=== PATIENT | male | born 1955 | race Two or more races ===

== ENCOUNTER 2016-08-11 15:31 | Emergency (ER) | payer OTHER ==
--- NOTE | 2016-08-11 16:29 | EDPHY ---
H & P Stated Complaint: frequent urination Time Seen by Provider: 08/11/16 16:10 HPI/ROS: CHIEF COMPLAINT: Confusion and urinary frequency HISTORY OF PRESENT ILLNESS: Patient is a 61-year-old man with a history of prostate cancer initially treated by Dr. 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 He is currently part of a clinical trial in [place] with Dr. Olson phone number [phone]. His brought him today concerned because he has had increased urinary frequency. He denies dysuria. He has a neobladder. No bowel abnormalities. No abdominal pain. No fever. His states however that recently he has been mumbling and talking to himself and seem startled when she asked him a question. Also that he occasionally twitches while he is asleep or resting. They spoke with Dr. Jaramillo who was current further an for urinary tract infection and possibly brain metastasis and recommended the patient come here for evaluation. He has not had any weakness or numbness. He has not had any imbalance or difficulty walking. REVIEW OF SYSTEMS: Constitutional: denies: chills, fever, recent illness, recent injury EENTM: denies: blurred vision, double vision, nose congestion Respiratory: denies: cough, shortness of breath Cardiac: denies: chest pain, irregular heart rate, lightheadedness, palpitations Gastrointestinal/Abdominal: denies: abdominal pain, diarrhea, nausea, vomiting, blood streaked stools Genitourinary: See HPI, denies: dysuria, hematuria, pain Musculoskeletal: denies: joint pain, muscle pain Skin: denies: lesions, rash, jaundice, bruising Neurological: See HPI denies: headache, numbness, paresthesia, tingling, dizziness, weakness Hematologic/Lymphatic: denies: blood clots, easy bleeding, easy bruising Immunologic/allergic: denies: HIV/AIDS, transplant EXAM: GENERAL: Well-appearing, well-nourished and in no acute distress. HEAD: Atraumatic, normocephalic. EYES: Pupils equal round and reactive to light, extraocular movements intact, sclera anicteric, conjunctiva are normal. ENT: TMs normal, nares patent, oropharynx clear without exudates. Moist mucous membranes. NECK: Normal range of motion, supple without lymphadenopathy or JVD. LUNGS: Breath sounds clear to auscultation bilaterally and equal. No wheezes rales or rhonchi. HEART: Regular rate and rhythm without murmurs, rubs or gallops. ABDOMEN: Soft, Right inguinal hernia, nontender, normoactive bowel sounds. No guarding, no rebound. No masses appreciated. BACK: No CVA tenderness, no spinal tenderness, step-offs or deformities EXTREMITIES: Normal range of motion, no pitting or edema. No clubbing or cyanosis. NEUROLOGICAL: Cranial nerves II through XII grossly intact. Normal speech, normal gait. 5/5 strength, normal movement in all extremities, normal sensation PSYCH: Normal mood, normal affect. SKIN: Warm, dry, normal turgor, no visible rashes or lesions. Source: Patient Exam Limitations: No limitations - Personal History Current Tetanus Diphtheria and Acellular Pertussis (TDAP): Yes - Medical/Surgical History Hx Asthma: No Hx Chronic Respiratory Disease: No Hx Diabetes: No Hx Cardiac Disease: No Other PMH: abd hernia,bladder ca, bandar bladder, liver metastasis - Family History Significant Family History: Hypertension - Social History Smoking Status: Never smoked Alcohol Use: Sober Drug Use: None Constitutional: Initial Vital Signs Temperature (C) 36.9 C 08/11/16 15:41 Heart Rate 95 08/11/16 15:41 Respiratory Rate 16 08/11/16 15:41 Blood Pressure 139/91 H 08/11/16 15:41 O2 Sat (%) 91 L 08/11/16 15:41 O2 Delivery Mode Room Air Allergies/Adverse Reactions: No Known Allergies Allergy (Unverified 08/11/16 15:39) Home Medications: Medication Instructions Recorded Epacadostat 08/11/16 GAS-X 08/11/16 Metoclopramide 08/11/16 Mucinex 08/11/16 Oxycodone HCl 08/11/16 Oxycontin 08/11/16 Zofran 08/11/16 Medical Decision Making - Diagnostics Imaging: Results: MRI scan of the brain was obtained. The results of the study are multiple metastases approximately 10-12, no mass effect, no herniation, no hemorrhage. The study was read by Dr. Mina Mohan. I viewed the images myself on the PACS system. ED Course/Re-evaluation: discussed the imaging and lab results with Dr. Munoz in [place]. He recommended postvoid bladder scan to see if the patient is having any urinary retention and if so to place a Hilliard catheter. He does not recommend treating with antibiotics at this point awaiting for cultures. The patient is not having symptoms of infection. We discussed the MRI results. He recommended the patient follow up with Dr. Kiran on Saturday to consider whole brain radiation. I discussed this with the patient and his . The patient would prefer to go home. I did offer to admit to the hospital but he declines. The patient's postvoid residual 650. We will place a Hilliard catheter. Patient is comfortable this and continues to wish to be discharged. 9:00 p.m. the patient self caths at home and is declining a Hilliard catheter. He will do this more frequently. I discussed this case again with Dr. Munoz who agrees with this plan and will follow up with him on Saturday and get him into radiation oncology. Differential Diagnosis: Partial list of the Differential diagnosis considered include but were not limited to; bladder retention, urinary tract infection, infection, metastasis and although unlikely based on the history and physical exam, I also considered stroke, anxiety. I discussed these differential diagnoses and the plan with the patient as well as the usual and expected course. The patient understands that the diagnosis is provisional and that in medicine we are not always correct and that further workup is often warranted. Usual and customary warnings were given. All of the patient's questions were answered. The patient was instructed to return to the emergency department should the symptoms at all worsen or return, otherwise to followup with the physician as we discussed. - Data Points Laboratory Results: Laboratory Results 08/11/16 14:36 08/11/16 14:36 08/11/16 08/11/16 17:10 14:36 WBC 8.72 10^3/uL (3.80-9.50) RBC 4.66 10^6/uL (4.40-6.38) Hgb 12.0 L g/dL (13.7-17.5) Hct 35.8 L % (40.0-51.0) MCV 76.8 L fL (81.5-99.8) MCH 25.8 L pg (27.9-34.1) MCHC 33.5 g/dL (32.4-36.7) RDW 13.7 % (11.5-15.2) Plt Count 215 10^3/uL (150-400) MPV 9.3 fL (8.7-11.7) Neut % (Auto) 75.0 H % (39.3-74.2) Lymph % (Auto) 8.7 L % (15.0-45.0) Rankin % (Auto) 15.0 H % (4.5-13.0) Eos % (Auto) 0.1 L % (0.6-7.6) Baso % (Auto) 0.5 % (0.3-1.7) Nucleat RBC Rel Count 0.0 % (0.0-0.2) Absolute Neuts (auto) 6.54 H 10^3/uL (1.70-6.50) Absolute Lymphs (auto) 0.76 L 10^3/uL (1.00-3.00) Absolute Monos (auto) 1.31 H 10^3/uL (0.30-0.80) Absolute Eos (auto) 0.01 L 10^3/uL (0.03-0.40) Absolute Basos (auto) 0.04 10^3/uL (0.02-0.10) Absolute Nucleated RBC 0.00 10^3/uL (0-0.01) Immature Gran % 0.7 % (0.0-1.1) Immature Gran # 0.06 10^3/uL (0.00-0.10) Sodium 131 L mEq/L (134-144) Potassium 4.7 mEq/L (3.5-5.2) Chloride 96 L mEq/L (97-110) Carbon Dioxide 27 mEq/l (22-31) Anion Gap 8 mEq/L (8-16) BUN 20 mg/dL (7-23) Creatinine 1.6 H mg/dL (0.7-1.3) Estimated GFR 44 Glucose 115 H mg/dL (70-100) Calcium 8.3 L mg/dL (8.5-10.4) Total Bilirubin 0.6 mg/dL (0.1-1.4) Conjugated Bilirubin 0.3 mg/dL (0.0-0.5) Unconjugated Bilirubin 0.3 mg/dL (0.0-1.1) AST 59 IU/L (17-59) ALT 63 IU/L (21-72) Alkaline Phosphatase 188 H IU/L (38-126) Total Protein 5.8 L g/dL (6.3-8.2) Albumin 3.1 L g/dL (3.5-5.0) Lipase 25.0 IU/L (23-300) Urine Color YELLOW Urine Appearance HAZY Urine pH 6.0 (5.0-7.5) Ur Specific [place] 1.009 (1.002-1.030) Urine Protein NEGATIVE (NEGATIVE) Urine Ketones NEGATIVE (NEGATIVE) Urine Blood 1+ H (NEGATIVE) Urine Nitrate NEGATIVE (NEGATIVE) Urine Bilirubin NEGATIVE (NEGATIVE) Urine Urobilinogen NEGATIVE EU (0.2-1.0) Ur Leukocyte Esterase 3+ H (NEGATIVE) Urine RBC 1-3 /hpf (0-3) Urine WBC 50-182 H /hpf (0-3) Ur Epithelial Cells NONE SEEN /lpf (NONE-1+) Urine Bacteria TRACE H /hpf (NONE SEEN) Urine Mucus TRACE /lpf (NONE-1+) Ur Culture Indicated? INDICATED H (NI) Urine Glucose NEGATIVE (NEGATIVE) Departure - Departure Disposition: Home, Routine, Self-Care Clinical Impression: Urinary retention, Brain metastases Condition: Fair Instructions: Urinary Retention in Men (ED) Referrals: Mike Kiran MD [Primary Care Provider] - As per Instructions
[2016-08-11] MEDS ORDERED: GADOBUTROL 10 ML VIAL IVP ONE (16:36)
[2016-08-11 16:50] LABS: % IMMATURE GRANULYOCYTES 0.7 % (0.0-1.1); ABSOLUTE IMMATURE GRANULOCYTES 0.06 10^3/uL (0.00-0.10); ADD DIFF? NO; ADD MORPH? NO; ADD SCAN? NO; ATYPICAL LYMPHOCYTE FLAG 10 (0-99); FRAGMENT RBC FLAG 0 (0-99); HEMATOCRIT 35.8 % (40.0-51.0); LEFT SHIFT FLG 0 (0-99); LIPEMIA HEMOLYSIS FLAG 80 (0-99); MEAN CELL HEMOGLOBIN 25.8 pg (27.9-34.1); MEAN CELL HEMOGLOBIN CONCENTR. 33.5 g/dL (32.4-36.7); MEAN CELL VOLUME 76.8 fL (81.5-99.8); MEAN PLATELET VOLUME 9.3 fL (8.7-11.7); PLATELET CLUMPS FLAG 0 (0-99); PLATELET COUNT 215 10^3/uL (150-400); RED BLOOD CELL COUNT 4.66 10^6/uL (4.40-6.38); RED CELL DISTRIBUTION WIDTH 13.7 % (11.5-15.2)
[2016-08-11 17:06] LABS: ALANINE AMINOTRANSFERASE 63 IU/L (21-72); ALBUMIN 3.1 g/dL (3.5-5.0); ALKALINE PHOSPHATASE 188 IU/L (38-126); ANION GAP 8 mEq/L (8-16); ASPARTATE AMINOTRANSFERASE 59 IU/L (17-59); BILIRUBIN,TOTAL 0.6 mg/dL (0.1-1.4); BILIRUBIN-CONJUGATED 0.3 mg/dL (0.0-0.5); BILIRUBIN-UNCONJUGATED 0.3 mg/dL (0.0-1.1); CALCIUM 8.3 mg/dL (8.5-10.4); CARBON DIOXIDE 27 mEq/l (22-31); CHLORIDE 96 mEq/L (97-110); CREATININE 1.6 mg/dL (0.7-1.3); GLOMERULAR FILTRATION RATE 44; GLUCOSE 115 mg/dL (70-100); POTASSIUM 4.7 mEq/L (3.5-5.2); SODIUM 131 mEq/L (134-144); TOTAL PROTEIN 5.8 g/dL (6.3-8.2)
[2016-08-11 17:19] LABS: COLOR YELLOW; LEUKOCYTE ESTERASE,URINE 3+ (NEGATIVE); NITRITE,URINE NEGATIVE (NEGATIVE)
[2016-08-11 17:22] LABS: BACTERIA TRACE /hpf (NONE SEEN); MUCUS TRACE /lpf (NONE-1+); WBC,URINE 50-182 /hpf (0-3)
[2016-08-11 18:11] VITALS: TEMP 98.6
--- NOTE | 2016-08-11 18:27 | MR ---
MRI of the Head (Before and Following Gadolinium) Clinical Indications: Bladder cancer. Evaluate for intracranial metastases. Technique: T1-weighted images were obtained sagittally and axially. Diffusion-weighted, inversion r ecovery, and fast T2-weighted axial images were obtained. T1-weighted axial and coronal images were obtained after intravenous administration of 7 mL of Gadavist. Findings: On postcontrast-enhanced imaging, extensive intracranial metastatic disease is identified. There are approximately nine metastases present in the cerebellum with multiple smaller metastases p resent in the frontal, parietal, and occipital regions above the tentorium. Metastatic lesions are me asured on axial series 9. Again, there are approximately nine metastases in the cerebellum, the large st measuring 2.5 cm superiorly on the right. No evidence of hemorrhage or mass effect. The fourth francis tricle is normal in position and shape. Above the tentorium, there are multiple intracranial metastas es. There is a 5 mm metastasis at the base of the left frontal lobe. There is a 5 mm parafalcine meta stasis in the right frontal lobe. There is also a 4 mm metastasis in the high left frontal lobe. Post eriorly, there is a 9 mm metastasis in the left occipital lobe. There are also small metastases in th e high left frontal cortical region of 6 mm and 7.5 mm on the right. A high right parietal posterior metastasis measures 7.3 mm and a left parafalcine high left parietal metastasis measures 4 mm. Again, no evidence of intracranial hemorrhage, midline shift, or herniation. Craniocervical junction appears normal. Carotid and vertebral basilar flow voids are present. Impression: Multiple cerebellar and cerebral metastatic lesions, approximately 20 in number. Results called to Dr. David at 6:20 p.m.
[2016-08-11 19:56] VITALS: BP 153/94; PULSE 81; RESP 16; O2SAT 91
== END 2016-08-11 19:56 | disposition home or self-care (01) ==
DX: C71.9 Malignant neoplasm of brain, unspecified (principal); R33.9 Retention of urine, unspecified; Z85.51 Personal history of malignant neoplasm of bladder; Z85.05 Personal history of malignant neoplasm of liver
CPT/HCPCS: A9585

== ENCOUNTER → 2016-09-05 | Outpatient (CLI) | payer BC ==
[~2016-09-05] MED LIST: IOPAMIDOL (ISOVUE-300) 100 ML BTL IV ONE
[2016-09-05 15:32] LABS: CREATININE 1.5 mg/dL (0.7-1.3)
== END ==
LOC: FIMAGING 14:27
PROVIDERS: ATTEND Radiology Diagnostic Radiology
DX: C78.7 Secondary malignant neoplasm of liver and intrahepatic bile duct (principal); C67.9 Malignant neoplasm of bladder, unspecified; R91.1 Solitary pulmonary nodule; M89.9 Disorder of bone, unspecified; I25.10 Atherosclerotic heart disease of native coronary artery without angina pectoris; I88.9 Nonspecific lymphadenitis, unspecified; Z90.6 Acquired absence of other parts of urinary tract
CPT/HCPCS: Q9967

== ENCOUNTER 2016-09-07 14:07 | Emergency (ER) | payer BC ==
[2016-09-07] MEDS ORDERED: NS 1,000 ML IV ONE (14:50)
--- NOTE | 2016-09-07 14:50 | EDPHY ---
H & P Smoking Status: Never smoked Time Seen by Provider: 09/07/16 14:22 HPI/ROS: Chief complaint. Swollen feet, dark urine HPI. Patient is a 61-year-old male with metastatic bladder cancer. Over the past 4-5 days he has had progressively generalized weakness, progressive Darrick darker urine. He had a UTI 3 weeks ago and then follow up with Urology showed the urine to be infection free. He has had increased swollen feet over the past 2-3 days it hurts to move. He does have some bilateral calf pain. Slight shortness of breath. No abdominal pain. No fever. No vomiting or diarrhea. He has been having some problems with constipation. Patient has had chemotherapy, clinical trial, radiation, surgery for his bladder cancer. Recent evaluation shows that he has mets to liver and brain. ROS Constitutional. Generalized weakness Eyes. no problems with vision ENT. no sore throat, no nasal drainage Cardiovascular. no chest pain Respiratory. no shortness of breath, no cough Abdominal. no abdominal pain, no nausea/vomiting, no diarrhea . Dark urine MS. Swollen feet and ankles the pain in calf Skin. no rash Lymph. no swollen glands Neuro. no headache, no dizziness, no difficulty walking or with speech (Bhupendra Mart) Past Medical/Surgical History: Metastatic bladder cancer (Bhupendra Mart) Social History: , nonsmoker, no alcohol (Bhupendra Mart) Physical Exam: General Appearance: Alert well-developed male moderate distress vital signs are stable Eyes: Pupils equal and round no pallor or injection. ENT, Mouth: Mucous membranes are moist. Respiratory: There are no retractions, lungs are clear to auscultation. Cardiovascular: Regular rate and rhythm. Gastrointestinal: Abdomen is soft and nontender, no masses, bowel sounds normal. Neurological: Awake and alert, sensory and motor exams grossly normal. Skin: Warm and dry, no rashes. Musculoskeletal: Neck is supple nontender. Extremities 3+ edema to both feet and ankles with tenderness in his calves Psychiatric: Patient is oriented X 3, there is no agitation. (Bhupendra Mart) Constitutional: Initial Vital Signs Temperature (C) 36.8 C 09/07/16 14:12 Heart Rate 88 09/07/16 14:12 Respiratory Rate 18 09/07/16 14:12 Blood Pressure 138/86 H 09/07/16 14:12 O2 Sat (%) 92 09/07/16 14:12 O2 Delivery Mode Room Air Allergies/Adverse Reactions: No Known Allergies Allergy (Unverified 08/11/16 15:39) Home Medications: Medication Instructions Recorded Oxycodone HCl 08/11/16 Oxycontin 08/11/16 Zofran 08/11/16 Cephalexin [Keflex] 500 mg PO TID #21 cap 09/07/16 Medical Decision Making - Diagnostics Imaging: X-ray: chest x-ray was obtained. I viewed the images myself on the PACS system. My interpretation of the images is: negative for acute disease . The radiologist interpretation is negative for acute disease. Study: Ultrasound of the: Bilateral lower extremity Indication: Lower extremity swelling Results: US scan of the lower extremities was obtained. The results of the study are negative for DVTs. The study was read by the radiologist, Dr. Thakur. I viewed the images myself on the PACS system. (Naman David) Procedures: IV normal saline (Bhupendra Mart) Other Provider: The patient's care transferred to [facility] at 3:15 p.m. pending lab work and imaging. The patient's urinalysis appears positive. His cultures from 3 weeks ago show enterococcus sensitive ampicillin, Macrobid, penicillin vancomycin, resistant to tetracyclines and gentamicin 5:10 p.m. I had a long discussion with the patient and his family. Patient has another urinary tract infection. I recommended admission considering his elevated white blood cell count and comorbidities. The patient's family agreed but the patient adamantly refuses. To me he denies any shortness of breath. He states that he only has shortness of breath at home because [place] but that he has oxygen. He wants to receive a dose of IV antibiotics here and go home on pills. He states that he only lives 20 minutes from here has several caretakers. He states that he is on a holiday from his medications and oncologic care. He adamantly refuses again to stay in the hospital. He is saturating 97% on room air and appears comfortable. His heart rate is 85. His BMP is elevated but he has no edema on x-ray and no crackles on exam. His ankles are both edematous but he states that this is likely from being in bed so much over the last 3 days because of his urinary tract infection and feeling under the weather. He will try to increase his mobility. (Naman David) Care Turn Over: Dr. David at 1500 (Bhupendra Mart) - Data Points Laboratory Results: Laboratory Results 09/07/16 15:40 09/07/16 15:40 09/07/16 09/07/16 09/07/16 15:40 15:40 15:40 WBC RBC Hgb Hct MCV MCH MCHC RDW Plt Count MPV Neut % (Auto) Lymph % (Auto) [place] % (Auto) Eos % (Auto) Baso % (Auto) Nucleat RBC Rel Count Absolute Neuts (auto) Absolute Lymphs (auto) Absolute Monos (auto) Absolute Eos (auto) Absolute Basos (auto) Absolute Nucleated RBC Immature Gran % Seg Neutrophils % Band Neutrophils % Lymphocytes % Monocytes % Metamyelocytes % Myelocytes % Immature Gran # Absolute Seg Neuts Absolute Band Neuts Absolute Lymphocytes Absolute Monocytes Absolute Metamyelocyte Absolute Myelocytes Differential Comment Cancelled RBC/WBC/PLT Morphology Cancelled Hypersegmented Neuts Cancelled Atypical Lymphocytes Cancelled Smudge Cells Cancelled Toxic Granulation Cancelled Toxic Vacuolation Cancelled Dohle Bodies Cancelled Melanie Rods Cancelled Platelet Estimate Cancelled Large Platelets Cancelled Giant Platelets Cancelled Bizarre Platelets Cancelled Polychromasia Cancelled Hypochromasia Cancelled Basophilic Stippling Cancelled Microcytic Cells Cancelled Spherocytes Cancelled Pappenheimer Bodies Cancelled Sickle Cells Cancelled Target Cells Cancelled Tear Drop Cells Cancelled Oval Macrocytes Cancelled Stomatocytes Cancelled Miller-[place] Bodies Cancelled Echinocytes Cancelled Elliptocytes Cancelled Acanthocytes (Spur) Cancelled Rouleaux Cancelled Keratocytes Cancelled Schistocytes Cancelled Smear Review By PT 16.1 SEC H SEC (12.0-15.0) INR 1.29 H (0.83-1.16) APTT 25.9 SEC SEC (23.0-38.0) D-Dimer > 20.00 ug/mLFEU H ug/mLFEU (0.00-0.50) Sodium 129 mEq/L L mEq/L (134-144) Potassium 4.8 mEq/L mEq/L (3.5-5.2) Chloride 96 mEq/L L mEq/L (97-110) Carbon Dioxide 24 mEq/l mEq/l (22-31) Anion Gap 9 mEq/L mEq/L (8-16) BUN 38 mg/dL H mg/dL (7-23) Creatinine 1.3 mg/dL mg/dL (0.7-1.3) Estimated GFR 56 Glucose 150 mg/dL H mg/dL (70-100) Calcium 8.5 mg/dL mg/dL (8.5-10.4) Total Bilirubin 2.2 mg/dL H mg/dL (0.1-1.4) Conjugated Bilirubin 1.2 mg/dL H mg/dL (0.0-0.5) Unconjugated Bilirubin 1.0 mg/dL mg/dL (0.0-1.1) AST 145 IU/L H IU/L (17-59) ALT 162 IU/L H IU/L (21-72) Alkaline Phosphatase 453 IU/L H IU/L (38-126) Troponin I 0.016 ng/mL ng/mL (0-0.034) NT-Pro-B Natriuret Pep 1300 pg/mL H pg/mL (0-125) Total Protein 5.9 g/dL L g/dL (6.3-8.2) Albumin 2.9 g/dL L g/dL (3.5-5.0) Lipase 88.0 IU/L IU/L (23-300) Urine Color Urine Appearance Urine pH Ur Specific [place] Urine Protein Urine Ketones Urine Blood Urine Nitrate Urine Bilirubin Urine Urobilinogen Ur Leukocyte Esterase Urine RBC Urine WBC Ur Epithelial Cells Ur Culture Indicated? Urine Glucose Cold Agglutinins Cancelled 09/07/16 09/07/16 15:40 14:55 WBC 16.41 10^3/uL H 10^3/uL (3.80-9.50) RBC 5.35 10^6/uL 10^6/uL (4.40-6.38) Hgb 13.2 g/dL L g/dL (13.7-17.5) Hct 40.6 % % (40.0-51.0) MCV 75.9 fL L fL (81.5-99.8) MCH 24.7 pg L pg (27.9-34.1) MCHC 32.5 g/dL g/dL (32.4-36.7) RDW 22.1 % H % (11.5-15.2) Plt Count 50 10^3/uL L 10^3/uL (150-400) MPV Not Reported Neut % (Auto) Not Reported Lymph % (Auto) Not Reported [place] % (Auto) Not Reported Eos % (Auto) Not Reported Baso % (Auto) Not Reported Nucleat RBC Rel Count 0.0 % % (0.0-0.2) Absolute Neuts (auto) Not Reported Absolute Lymphs (auto) Not Reported Absolute Monos (auto) Not Reported Absolute Eos (auto) Not Reported Absolute Basos (auto) Not Reported Absolute Nucleated RBC 0.00 10^3/uL 10^3/uL (0-0.01) Immature Gran % Not Reported Seg Neutrophils % 90 % % Band Neutrophils % 1 % % Lymphocytes % 2 % % Monocytes % 4 % % Metamyelocytes % 2 % % Myelocytes % 1 % % Immature Gran # Not Reported Absolute Seg Neuts 14.77 10^/uL H 10^/uL (1.70-6.50) Absolute Band Neuts 0.16 10^3/uL 10^3/uL (0.00-0.70) Absolute Lymphocytes 0.33 10^3/uL L 10^3/uL (1.00-3.00) Absolute Monocytes 0.66 10^3/uL 10^3/uL (0.30-0.80) Absolute Metamyelocyte 0.33 10^3/mL H 10^3/mL (0.00-0.00) Absolute Myelocytes 0.16 10^3/mL H 10^3/mL (0.00-0.00) Differential Comment RBC/WBC/PLT Morphology Hypersegmented Neuts Atypical Lymphocytes Smudge Cells Toxic Granulation Toxic Vacuolation Dohle Bodies Melanie Rods Platelet Estimate DECREASED L (ADEQ) Large Platelets Giant Platelets Bizarre Platelets Polychromasia Hypochromasia 1+ H Basophilic Stippling Microcytic Cells 2+ H Spherocytes Pappenheimer Bodies Sickle Cells Target Cells Tear Drop Cells Oval Macrocytes 1+ H Stomatocytes [place] Bodies Echinocytes Elliptocytes Acanthocytes (Spur) Rouleaux Keratocytes Schistocytes Smear Review By Pending PT INR APTT D-Dimer Sodium Potassium Chloride Carbon Dioxide Anion Gap BUN Creatinine Estimated GFR Glucose Calcium Total Bilirubin Conjugated Bilirubin Unconjugated Bilirubin AST ALT Alkaline Phosphatase Troponin I NT-Pro-B Natriuret Pep Total Protein Albumin Lipase Urine Color YELLOW Urine Appearance MODERATELY TURBID Urine pH 6.0 (5.0-7.5) Ur Specific [place] 1.012 (1.002-1.030) Urine Protein 1+ H (NEGATIVE) Urine Ketones NEGATIVE (NEGATIVE) Urine Blood 1+ H (NEGATIVE) Urine Nitrate POSITIVE H (NEGATIVE) Urine Bilirubin NEGATIVE (NEGATIVE) Urine Urobilinogen NEGATIVE EU EU (0.2-1.0) Ur Leukocyte Esterase 1+ H (NEGATIVE) Urine RBC 5-10 /hpf H /hpf (0-3) Urine WBC 50-182 /hpf H /hpf (0-3) Ur Epithelial Cells NONE SEEN /lpf /lpf (NONE-1+) Ur Culture Indicated? INDICATED H (NI) Urine Glucose NEGATIVE (NEGATIVE) Cold Agglutinins Medications Given: Discontinued Medications Sodium Chloride (Ns) 1,000 mls @ 0 mls/hr IV ONCE ONE PRN Reason: Wide Open Stop: 09/07/16 14:51 Last Admin: 09/07/16 15:42 Dose: 1,000 mls Ceftriaxone Sodium/Dextrose (Rocephin 1 Gm (Premix)) 50 mls @ 100 mls/hr IV EDNOW ONE PRN Reason: Protocol Stop: 09/07/16 17:41 Last Admin: 09/07/16 17:25 Dose: 50 mls Departure - Departure Disposition: Home, Routine, Self-Care Clinical Impression: Urinary tract infection Qualifiers: Urinary tract infection type: acute cystitis Hematuria presence: without hematuria Qualified Code(s): N30.00 - Acute cystitis without hematuria Condition: Fair Instructions: Urinary Tract Infection in Men (ED) Referrals: NONE *PRIMARY CARE P,. [Primary Care Provider] - As per Instructions Prescriptions: Cephalexin [Keflex] 500 mg PO TID #21 cap
[2016-09-07 15:06] LABS: COLOR YELLOW; LEUKOCYTE ESTERASE,URINE 1+ (NEGATIVE); NITRITE,URINE POSITIVE (NEGATIVE)
[2016-09-07 15:22] LABS: WBC,URINE 50-182 /hpf (0-3)
[2016-09-07 15:47] LABS: ADD DIFF? YES; ADD MORPH? YES; ADD SCAN? NO; ATYPICAL LYMPHOCYTE FLAG 0 (0-99); FRAGMENT RBC FLAG 40 (0-99); HEMATOCRIT 40.6 % (40.0-51.0); HEMOGLOBIN 13.2 g/dL (13.7-17.5); LEFT SHIFT FLG 10 (0-99); LIPEMIA HEMOLYSIS FLAG 80 (0-99); MEAN CELL HEMOGLOBIN 24.7 pg (27.9-34.1); MEAN CELL HEMOGLOBIN CONCENTR. 32.5 g/dL (32.4-36.7); MEAN CELL VOLUME 75.9 fL (81.5-99.8); PLATELET CLUMPS FLAG 0 (0-99); PLATELET COUNT 50 10^3/uL (150-400); RED BLOOD CELL COUNT 5.35 10^6/uL (4.40-6.38)
[2016-09-07 15:49] LABS: RED CELL DISTRIBUTION WIDTH 22.1 % (11.5-15.2)
[2016-09-07 15:57] LABS: ALANINE AMINOTRANSFERASE 162 IU/L (21-72); ALBUMIN 2.9 g/dL (3.5-5.0); ALKALINE PHOSPHATASE 453 IU/L (38-126); ANION GAP 9 mEq/L (8-16); ASPARTATE AMINOTRANSFERASE 145 IU/L (17-59); BILIRUBIN,TOTAL 2.2 mg/dL (0.1-1.4); BILIRUBIN-CONJUGATED 1.2 mg/dL (0.0-0.5); CALCIUM 8.5 mg/dL (8.5-10.4); CARBON DIOXIDE 24 mEq/l (22-31); CHLORIDE 96 mEq/L (97-110); CREATININE 1.3 mg/dL (0.7-1.3); GLOMERULAR FILTRATION RATE 56; GLUCOSE 150 mg/dL (70-100); POTASSIUM 4.8 mEq/L (3.5-5.2); SODIUM 129 mEq/L (134-144); TOTAL PROTEIN 5.9 g/dL (6.3-8.2)
[2016-09-07 16:05] LABS: APTT 25.9 SEC (23.0-38.0); INR 1.29 (0.83-1.16); PROTIME(PATIENT) 16.1 SEC (12.0-15.0)
[2016-09-07 16:09] LABS: TROPONIN I 0.016 ng/mL (0-0.034)
[2016-09-07 16:41] LABS: HYPOCHROMIA 1+; MACROCYTES 1+; MICROCYTES 2+; PLATELET ESTIMATE DECREASED (ADEQ)
[2016-09-07 18:20] VITALS: BP 132/96; PULSE 90; RESP 15; TEMP 98.8; O2SAT 95
== END 2016-09-07 18:20 | disposition home or self-care (01) ==
DX: N30.00 Acute cystitis without hematuria (principal); B96.89 Other specified bacterial agents as the cause of diseases classified elsewhere; Z85.51 Personal history of malignant neoplasm of bladder
CPT/HCPCS: 96365; J0696

== ENCOUNTER 2016-09-12 09:47 | Inpatient (IN) | payer BC ==
--- NOTE | 2016-09-12 09:59 | EDPHY ---
H & P Time Seen by Provider: 09/12/16 09:48 HPI/ROS: CHIEF COMPLAINT: Weakness HISTORY OF PRESENT ILLNESS: The patient is a 61 year old male with history of metastatic bladder cancer, brought in by EMS with progressively generalized weakness over the past weak. The patient was seen here 09/07/16 for the same complaint. He received IV antibiotics and was started on Keflex for UTI. The patient was offered admission, but declined. According to spouse, since discharge, the patient has progressively become more weak. Today the patient was unable to ambulate due to weakness. He began to have intermittent twitching. The patient complains of abdominal pain and states his abdomen is more swollen than usual. Th patient has a neobladder. His spouse catheterized him yesterday. She is concerned about urinary retention. No fever. No vomiting or diarrhea. Additionally the patient's spouse notes continued swelling in his lower extremities. The patient has had radiation, surgery, and chemotherapy and is currently clinical trial agent on a for his bladder cancer. Recent evaluation shows metastases to liver and brain. REVIEW OF SYSTEMS: Aside from elements discussed in the HPI, a comprehensive 10-point review of systems was reviewed and is negative. PAST MEDICAL HISTORY: Metastatic bladder cancer, metastatic to liver, brain. SOCIAL HISTORY: Dr. Kiran, Oncologist. Dr. Olson: [[phone]] [[phone]] VITAL SIGNS: Reviewed by me GENERAL: Ill-appearing, slightly jaundiced, seems weak and tired. HEENT: Atraumatic. Eyes: No icterus, no injection. Mouth: Dry mucous membranes. No erythema or lesions. Neck: supple with no adenopathy. LUNGS: Clear to auscultation bilaterally, no wheezes, rhonchi or rales. CARDIAC: Regular rate and rhythm, no rubs, murmurs or gallops. ABDOMEN: Soft, nontender, nondistended, bowel sounds normal. Paramedian abdominal wall hernia to the right. BACK: No CVA tenderness. EXTREMITIES: No trauma. 1-2+ mid miller edema, worse on the left. Range of motion is normal throughout. NEURO: Alert and oriented, grossly nonfocal. SKIN: Warm and dry, no rash. PSYCHIATRIC: Slow to answer questions. Seems sleepy. No agitation. Portions of this note were transcribed by a medical management specialist. I personally performed a history, physical exam, medical decision making, and confirmed accuracy of information the transcribed note. Source: Patient - Medical/Surgical History Hx Asthma: No Hx Chronic Respiratory Disease: No Hx Diabetes: No Hx Cardiac Disease: No Hx Renal Disease: No Hx Cirrhosis: No Hx Alcoholism: No Hx HIV/AIDS: No Hx Splenectomy or Spleen Trauma: No Other PMH: abd hernia,bladder ca, bandar bladder, liver metastasis - Social History Smoking Status: Never smoked Constitutional: Initial Vital Signs Temperature (C) 36.8 C 09/12/16 09:54 Heart Rate 89 09/12/16 09:54 Respiratory Rate 18 09/12/16 09:54 Blood Pressure 124/92 H 09/12/16 09:54 O2 Sat (%) 86 L 09/12/16 09:54 O2 Delivery Mode Nasal Cannula O2 (L/minute) 2 Allergies/Adverse Reactions: No Known Allergies Allergy (Unverified 08/11/16 15:39) Home Medications: Medication Instructions Recorded Ondansetron Odt [Zofran Odt 4 mg 4 mg PO Q4H PRN 08/11/16 (*)] oxyCODONE CR [OxyCONTIN] 160 mg PO Q8H 08/11/16 oxyCODONE IR [Oxycodone Ir (*)] 20 mg PO Q3-4PRN PRN 08/11/16 Cephalexin [Keflex] 500 mg PO TID #21 cap 09/07/16 Baclofen [Baclofen 10 mg (*)] 10 mg PO DAILY PRN 09/12/16 Dexamethasone [Decadron 4 MG (*)] 4 mg PO Q8H 09/12/16 Metoclopramide [Reglan 10 mg tab 10 mg PO Q8H PRN 09/12/16 (*)] Sennosides/Docusate Sodium 3 each PO BID PRN 09/12/16 [Senna-Docusate Sodium Tablet] Medical Decision Making - Diagnostics EKG Interpretation: The 12 lead EKG was interpreted by myself. See hard copy and/or "tracemaster" electronic copy for interpretation: Sinus rhythm, non-ischemic. Imaging: Study: CT of the head. Indication: Bladder cancer with metastasis to brain. Results: 1. No acute intracranial hemorrhage or mass effect. 2. Majority of brain metastasis are not evident. The study was read by the radiologist, Dr. Ward. I viewed the images myself on the PACS system. Study: X-ray of the chest was obtained. Results: Normal. Images were interpreted by the radiologist, Dr. Del Rosario. I viewed the images myself on the PACS system. ED Course/Re-evaluation: 1125: I spoke Dr. Olson, who informed me that the patient's experimental chemotherapy has been held for 1 month while getting radiation. His elevated LFTs may be from worsening liver metastases. No prior history of thrombocytopenia. Query bone marrow metastases resulting of thrombocytopenia. causing platelets to be so low. Vitals have remained stable. Plan to call hospitalist and patient's oncologist, Dr. Kiran. Patient has elevated troponin. Platelets are low. BNP is elevated. UA shows signs of infection. 1140: The patient will be admitted to Oncology. 1155: The patient has danna blood in Hilliard catheter. Platelets were ordered. Plan for CT head. 1200: The patient is receiving platelets. Dr. Avila will accepts the patient for admission. This is a 61-year-old male who presents to the emergency department with weakness. No documented history of fever. According to his he has been intermittently tachycardic at home but on arrival to the emergency department heart rate is 72. Patient's respiratory rate is 18. Patient has no fever by history nor here. Patient does NOT meet SIRS criteria. Nevertheless, the patient has an elevated white count 81435 and a lactic acid of 2.9. The urine appears to still be infected. Patient had blood cultures and urine cultures sent. Patient received 30 cc/kg of saline as well as 2 g of ceftriaxone. Lactic acid was repeated after fluids, level of 2.6. Differential Diagnosis: Differential diagnosis of the patient's weakness was considered including but not limited to electrolyte abnormality, anemia, cardiac ischemia, CVA, spinal cord abnormality, and infectious causes. Consult/Admit Bed Type: Dr. Avila, PCU Critical Care Time: I spent a total of 45 minutes of critical care time in obtaining history, performing a physical exam, bedside monitoring of interventions, collecting and interpreting tests and discussion with consultants but not including time spent performing procedures. - Data Points Laboratory Results: Laboratory Results 09/12/16 10:11 09/12/16 10:11 09/12/16 09/12/16 09/12/16 10:49 10:11 10:11 WBC RBC Hgb Hct MCV MCH MCHC RDW Plt Count MPV Neut % (Auto) Lymph % (Auto) [place] % (Auto) Eos % (Auto) Baso % (Auto) Nucleat RBC Rel Count Absolute Neuts (auto) Absolute Lymphs (auto) Absolute Monos (auto) Absolute Eos (auto) Absolute Basos (auto) Absolute Nucleated RBC Immature Gran % Seg Neutrophils % Band Neutrophils % Lymphocytes % Monocytes % Immature Gran # Absolute Seg Neuts Absolute Band Neuts Absolute Lymphocytes Absolute Monocytes Nucleated RBCs Differential Comment Cancelled RBC/WBC/PLT Morphology Cancelled Hypersegmented Neuts Cancelled Atypical Lymphocytes Cancelled Smudge Cells Cancelled Toxic Granulation Cancelled Toxic Vacuolation Cancelled Dohle Bodies Cancelled Melanie Rods Cancelled Platelet Estimate Cancelled Large Platelets Cancelled Giant Platelets Cancelled Bizarre Platelets Cancelled Polychromasia Cancelled Hypochromasia Cancelled Basophilic Stippling Cancelled Microcytic Cells Cancelled Spherocytes Cancelled Pappenheimer Bodies Cancelled Sickle Cells Cancelled Target Cells Cancelled Tear Drop Cells Cancelled Oval Macrocytes Cancelled Stomatocytes Cancelled Miller-Sewell Bodies Cancelled Echinocytes Cancelled Elliptocytes Cancelled Acanthocytes (Spur) Cancelled Rouleaux Cancelled Keratocytes Cancelled Schistocytes Cancelled Smear Review By Sodium 134 mEq/L mEq/L (134-144) Potassium 4.7 mEq/L mEq/L (3.5-5.2) Chloride 101 mEq/L mEq/L (97-110) Carbon Dioxide 23 mEq/l mEq/l (22-31) Anion Gap 10 mEq/L mEq/L (8-16) BUN 41 mg/dL H mg/dL (7-23) Creatinine 1.2 mg/dL mg/dL (0.7-1.3) Estimated GFR > 60 Glucose 95 mg/dL mg/dL (70-100) Calcium 9.0 mg/dL mg/dL (8.5-10.4) Total Bilirubin 8.0 mg/dL H mg/dL (0.1-1.4) Conjugated Bilirubin 5.1 mg/dL H mg/dL (0.0-0.5) Unconjugated Bilirubin 2.9 mg/dL H mg/dL (0.0-1.1) AST 169 IU/L H IU/L (17-59) ALT 170 IU/L H IU/L (21-72) Alkaline Phosphatase 478 IU/L H IU/L (38-126) Troponin I 0.043 ng/mL H ng/mL (0-0.034) NT-Pro-B Natriuret Pep 1880 pg/mL H pg/mL (0-125) Total Protein 6.1 g/dL L g/dL (6.3-8.2) Albumin 3.0 g/dL L g/dL (3.5-5.0) Lipase 180.0 IU/L IU/L (23-300) Urine Color [place] Urine Appearance MODERATELY TURBID Urine pH 6.0 (5.0-7.5) Ur Specific Bad[place] 1.012 (1.002-1.030) Urine Protein NEGATIVE (NEGATIVE) Urine Ketones NEGATIVE (NEGATIVE) Urine Blood 1+ H (NEGATIVE) Urine Nitrate NEGATIVE (NEGATIVE) Urine Bilirubin NEGATIVE (NEGATIVE) Urine Urobilinogen NEGATIVE EU EU (0.2-1.0) Ur Leukocyte Esterase NEGATIVE (NEGATIVE) Urine RBC 5-10 /hpf H /hpf (0-3) Urine WBC 50-182 /hpf H /hpf (0-3) Ur Epithelial Cells NONE SEEN /lpf /lpf (NONE-1+) Urine Bacteria NONE SEEN /hpf /hpf (NONE SEEN) Urine Mucus NONE SEEN /lpf /lpf (NONE-1+) Ur Culture Indicated? INDICATED H (NI) Urine Glucose NEGATIVE (NEGATIVE) Cold Agglutinins Cancelled 09/12/16 10:11 WBC 19.35 10^3/uL H 10^3/uL (3.80-9.50) RBC 4.85 10^6/uL 10^6/uL (4.40-6.38) Hgb 12.6 g/dL L g/dL (13.7-17.5) Hct 38.3 % L % (40.0-51.0) MCV 79.0 fL L fL (81.5-99.8) MCH 26.0 pg L pg (27.9-34.1) MCHC 32.9 g/dL g/dL (32.4-36.7) RDW 26.5 % H % (11.5-15.2) Plt Count 24 10^3/uL L* 10^3/uL (150-400) MPV TNP Neut % (Auto) Not Reported Lymph % (Auto) Not Reported [place] % (Auto) Not Reported Eos % (Auto) Not Reported Baso % (Auto) Not Reported Nucleat RBC Rel Count 0.6 % H % (0.0-0.2) Absolute Neuts (auto) Not Reported Absolute Lymphs (auto) Not Reported Absolute Monos (auto) Not Reported Absolute Eos (auto) Not Reported Absolute Basos (auto) Not Reported Absolute Nucleated RBC 0.11 10^3/uL H 10^3/uL (0-0.01) Immature Gran % Not Reported Seg Neutrophils % 66 % % Band Neutrophils % 24 % % Lymphocytes % 6 % % Monocytes % 4 % % Immature Gran # Not Reported Absolute Seg Neuts 12.77 10^/uL H 10^/uL (1.70-6.50) Absolute Band Neuts 4.64 10^3/uL H 10^3/uL (0.00-0.70) Absolute Lymphocytes 1.16 10^3/uL 10^3/uL (1.00-3.00) Absolute Monocytes 0.77 10^3/uL 10^3/uL (0.30-0.80) Nucleated RBCs 2 /100 WBC H /100 WBC (0-0) Differential Comment RBC/WBC/PLT Morphology Hypersegmented Neuts Atypical Lymphocytes 3+ H Smudge Cells Toxic Granulation Toxic Vacuolation Dohle Bodies Melanie Rods Platelet Estimate DECREASED L (ADEQ) Large Platelets PRESENT H Giant Platelets Bizarre Platelets Polychromasia 2+ H Hypochromasia 1+ H Basophilic Stippling 1+ H Microcytic Cells 1+ H Spherocytes Pappenheimer Bodies Sickle Cells Target Cells Tear Drop Cells Oval Macrocytes 1+ H Stomatocytes Miller-Sewell Bodies Echinocytes Elliptocytes Acanthocytes (Spur) 1+ H Rouleaux Keratocytes 2+ H Schistocytes 2+ H Smear Review By Pending Sodium Potassium Chloride Carbon Dioxide Anion Gap BUN Creatinine Estimated GFR Glucose Calcium Total Bilirubin Conjugated Bilirubin Unconjugated Bilirubin AST ALT Alkaline Phosphatase Troponin I NT-Pro-B Natriuret Pep Total Protein Albumin Lipase Urine Color Urine Appearance Urine pH Ur Specific [place] Urine Protein Urine Ketones Urine Blood Urine Nitrate Urine Bilirubin Urine Urobilinogen Ur Leukocyte Esterase Urine RBC Urine WBC Ur Epithelial Cells Urine Bacteria Urine Mucus Ur Culture Indicated? Urine Glucose Cold Agglutinins Medications Given: Discontinued Medications Sodium Chloride (Ns) 1,000 mls @ 0 mls/hr IV ONCE ONE PRN Reason: Wide Open Stop: 09/12/16 10:08 Last Admin: 09/12/16 10:20 Dose: 1,000 mls Ceftriaxone Sodium 1 gm/ (Dextrose) 50 mls @ 100 mls/hr IV EDNOW ONE PRN Reason: Protocol Stop: 09/12/16 12:26 Last Admin: 09/12/16 15:04 Dose: Not Given Ceftriaxone Sodium/Dextrose (Rocephin 1 Gm (Premix)) 50 mls @ 100 mls/hr IV ONCE ONE Stop: 09/12/16 12:59 Last Admin: 09/12/16 13:24 Dose: Not Given Ceftriaxone Sodium 2 gm/ (Dextrose) 50 mls @ 100 mls/hr IV EDNOW ONE PRN Reason: Protocol Stop: 09/12/16 13:10 Last Admin: 09/12/16 13:46 Dose: 50 mls Sodium Chloride (Ns *For Sepsis Order Set Only*) 2,200 ml IV EDNOW ONE Stop: 09/12/16 12:42 Last Admin: 09/12/16 12:46 Dose: 2,200 ml Departure - Departure Disposition: [facility] Inpatient Acute Clinical Impression: Weakness, Thrombocytopenia, Primary cancer of bladder with metastasis to other site, Elevated troponin, Liver metastases, Jaundice UTI (urinary tract infection) Qualifiers: Urinary tract infection type: site unspecified Hematuria presence: with hematuria Qualified Code(s): N39.0 - Urinary tract infection, site not specified Condition: Serious Report Scribed for: Chelly Del Cid Report Scribed by: Mely Roper Date of Report: 09/12/16 Time of Report: 10:07
[2016-09-12] MEDS ORDERED: NS 1,000 ML IV ONE (10:07)
[2016-09-12 10:21] LABS: ABSOLUTE NRBC COUNT 0.11 10^3/uL (0-0.01); ADD DIFF? YES; ADD MORPH? YES; ADD SCAN? NO; ATYPICAL LYMPHOCYTE FLAG 0 (0-99); HEMATOCRIT 38.3 % (40.0-51.0); HEMOGLOBIN 12.6 g/dL (13.7-17.5); LEFT SHIFT FLG 20 (0-99); LIPEMIA HEMOLYSIS FLAG 80 (0-99); MEAN CELL HEMOGLOBIN CONCENTR. 32.9 g/dL (32.4-36.7); NRBC-AUTO% 0.6 % (0.0-0.2); PLATELET CLUMPS FLAG 10 (0-99); RED BLOOD CELL COUNT 4.85 10^6/uL (4.40-6.38)
[2016-09-12 10:22] LABS: FRAGMENT RBC FLAG 100 (0-99); RED CELL DISTRIBUTION WIDTH 26.5 % (11.5-15.2)
[2016-09-12 10:24] LABS: PLATELET COUNT 24 10^3/uL (150-400)
[2016-09-12 10:57] LABS: ACANTHOCYTES 1+; ALANINE AMINOTRANSFERASE 170 IU/L (21-72); ALKALINE PHOSPHATASE 478 IU/L (38-126); ANION GAP 10 mEq/L (8-16); ASPARTATE AMINOTRANSFERASE 169 IU/L (17-59); BILIRUBIN-CONJUGATED 5.1 mg/dL (0.0-0.5); BILIRUBIN-UNCONJUGATED 2.9 mg/dL (0.0-1.1); CARBON DIOXIDE 23 mEq/l (22-31); CHLORIDE 101 mEq/L (97-110); CREATININE 1.2 mg/dL (0.7-1.3); GLOMERULAR FILTRATION RATE > 60; GLUCOSE 95 mg/dL (70-100); HYPOCHROMIA 1+; MACROCYTES 1+; MICROCYTES 1+; PLATELET ESTIMATE DECREASED (ADEQ); POLYCHROMASIA 2+; POTASSIUM 4.7 mEq/L (3.5-5.2); SODIUM 134 mEq/L (134-144); TOTAL PROTEIN 6.1 g/dL (6.3-8.2)
[2016-09-12 10:58] LABS: KERATOCYTES 2+; SCHISTOCYTES 2+
[2016-09-12 10:59] LABS: LARGE PLATELETS PRESENT
[2016-09-12 11:06] LABS: TROPONIN I 0.043 ng/mL (0-0.034)
[2016-09-12 11:07] LABS: COLOR AMBER; LEUKOCYTE ESTERASE,URINE NEGATIVE (NEGATIVE); NITRITE,URINE NEGATIVE (NEGATIVE)
[2016-09-12 11:29] LABS: WBC,URINE 50-182 /hpf (0-3)
[2016-09-12 11:30] LABS: BACTERIA NONE SEEN /hpf (NONE SEEN); MUCUS NONE SEEN /lpf (NONE-1+)
--- NOTE | 2016-09-12 11:55 | CPEKG ---
Heart Rate: 72 RR Interval: 833 P-R Interval: 140 QRSD Interval: 92 QT Interval: 416 QTC Interval: 456 P [place]: 71 QRS [place]: 42 T Wave [place]: 36 EKG Severity - NORMAL ECG - EKG Impression: SINUS RHYTHM Electronically Signed By: Catarino Henriquez 13-Sep-2016 12:01:42
[2016-09-12] MEDS ORDERED: cefTRIAXone 1 GM in D5W 50 ML IV ONE (11:57)
[2016-09-12] MEDS ORDERED: cefTRIAXone 2 GM in D5W 50 ML IV ONE (12:41)
[2016-09-12] MEDS ORDERED: NS 1,000 ML BAG *FOR SEPSIS ORDER SET ONLY IV ONE (12:41)
[2016-09-12] MEDS ORDERED: SENNOSIDES/DOCUSATE SODIUM TAB PO PRN (14:44)
[2016-09-12] MEDS ORDERED: oxyCODONE IR 5 MG TAB PO PRN (14:44)
[2016-09-12] MEDS ORDERED: BACLOFEN 10 MG TAB PO PRN (14:44)
[2016-09-12] MEDS ORDERED: ONDANSETRON DISINTEGRATING 4 MG TAB PO PRN (14:44)
[2016-09-12] MEDS ORDERED: METOCLOPRAMIDE 10 MG TAB PO PRN (14:44)
[2016-09-12] MEDS ORDERED: oxyCODONE CR 80 MG TAB PO SCH (15:00)
[2016-09-12] MEDS ORDERED: NS 1,000 ML IV SCH (15:15)
[2016-09-12] MEDS: DEXAMETHASONE 4 MG TAB PO SCH ×2 (15:17→22:04)
[2016-09-12] MEDS ORDERED: VANCOMYCIN 1.25 GM in D5W 250 ML IV SCH (16:00)
--- NOTE | 2016-09-12 16:23 | GHP ---
DATE OF ADMISSION: 09/12/2016 CHIEF COMPLAINT: Weakness. HISTORY OF PRESENT ILLNESS: This is a 61-year-old man with a history of metastatic bladder cancer, who presents with weakness. He was seen in the emergency department 5 days ago for the same complai nt. He was offered admission at that time, but refused. At that point, he was treated for a urinar y tract infection. Urine culture grew Enterococcus faecalis sensitive to penicillin, ampicillin, an d vancomycin. He has a neobladder in place. He was started on Keflex. He continues to be more weak. He and his son give an odd description of his weakness. He is described as having normal strength most of the time, with episodes of loss of muscle tone. These occur mostly when he is standing. He has not had any fevers. He does not have any dysuria. In terms of his metastatic bladder cancer, as above he has a neobladder which was placed about 2 yea rs ago when this was first diagnosed. He has known metastatic disease to his liver as well as his b rain. He was on an immunotherapy trial at the [facility], which he stopped due to feeling poorly in mid July. He received radiation to brain lesions after that, which completed about 10 days ago. He has also been on Decadron. He tells me that he has had a history of hepatitis back in the 70s. It is unclear exactly what this was, although he thinks that this may have been food related. He was hospitalized for about 4 days and jaundiced at that time. He has never had any liver problems other than cancer since then. PAST MEDICAL/SURGICAL HISTORY: 1. Metastatic bladder cancer. As above, status post neobladder placement. 2. Chronic pain on continuous narcotics. 3. Abdominal hernia. MEDICATIONS: Please see medication reconciliation. ALLERGIES: None. FAMILY HISTORY: No bladder cancer. SOCIAL HISTORY: He lives with his . He does not drink or smoke. REVIEW OF SYSTEMS: 10-point review of systems is conducted and is negative except per HPI. PHYSICAL EXAMINATION: VITAL SIGNS: Blood pressure is 120/72, pulse 72, respirations 16, satting 89 % on 2 L, temperature is 36.9. GENERAL: The patient is a pleasant man who is comfortable, resting in bed, in no acute distress. HEENT: Shows him to have scleral icterus. CARDIOVASCULAR: Regular r ate and rhythm. No murmurs, rubs, or gallops. PULMONARY: Lungs clear to auscultation bilaterally. ABDOMEN: Significant hepatosplenomegaly, which is mildly tender to palpation. He has an abdomina l wall hernia in the right lower quadrant, which is easily reducible, approximately 3 cm. Otherwise , his abdomen is soft and non-peritoneal. SKIN: Mild jaundice. : Hilliard catheter in place. TYSON ROLOGIC: Shows him to be alert and oriented x3. Strength and sensation are normal. He is moving a ll extremities. He has a nonfocal exam. PSYCHIATRIC: Shows normal mood and affect. LABORATORIES: White count is 19.3, hemoglobin is 12.6, platelets are 24. Lactate was initially 2.9 , down to 2.6. BUN is 41, creatinine is 1.2. Total bilirubin is 8, AST is 169, ALT is 170. Tropon in 0.043. BNP is 1880. Urinalysis shows 50-182 whites. DATA: 1. Head CT shows nothing acute, with apparent improvement in his brain metastases. 2. EKG shows sinus rhythm. There are no acute ischemic changes. 3. Chest x-ray shows normal heart size. No pulmonary infiltrates. This is a normal x-ray. IMPRESSION AND PLAN: This is a 61-year-old man with metastatic bladder cancer who presents with laci pavon. 1. Weakness: While it is possible that this is due to urinary tract infection, I am concerned that this may be due to progression of his cancer causing hepatic failure. He also has brain metastases . I think it is reasonable to treat possible urinary tract infection, have him work with PT/OT, and follow this closely. It is an odd description of weakness, which may be more primary neurologic gi francis his metastatic disease. 2. Possible urinary tract infection: He has Enterococcus faecalis; however, he does have a neoblad hemalatha. Will attempt to treat this as it would be the most easiest thing to treat to improve his weakn ess. Given the Enterococcus, I have started vancomycin. Given his abnormal LFTs with a cholestatic picture, we will use a fluoroquinolone rather than a cephalosporin. 3. Hepatic failure: His bilirubin is 8. It was 2 about 5 days ago. Unfortunately, suspect that t his is due to progression of his liver metastases. I have ordered an abdominal ultrasound to [facility] evaluate this for now. He has significant hepatomegaly on exam. Would consider involving GI. Wi ll involve General Surgery if there is gallbladder pathology. 4. Chronic pain on continuous narcotics: This is due to back pain. We will continue his home opia liliana. 5. Metastatic bladder cancer: Dr. Kaba will see him. He has brain lesions. We will continue h is Decadron. 6. Marked thrombocytopenia: This has been falling recently. This may be either directly due to hi s cancer or due to treatments from his cancer. He had some hematuria, thus he is getting transfused platelets. 7. Anemia: This is stable and chronic. 8. Urinary retention, hematuria following Hilliard placement: Follow this for now. Try to remove Fol ey if possible. 9. Elevated troponin: He is not having any chest pain. Will trend these. His EKG is nonischemic. There is a marked elevation. We will involve Cardiology, though very limited treatment options gi francis his significant thrombocytopenia. Would consider a beta lynsey if he is hemodynamically stable overnight. 10. Code status: I discussed this with him and his . They would like him to be full code at t his time. 11. VTE risk: He is moderate to high; however, with his low platelets he is not a heparin candidat e. I placed him on SCDs. /[id number]/MODL
--- NOTE | 2016-09-12 18:28 | GCON ---
FOLLOWUP ONCOLOGY CONSULTATION. 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 CONSULTATION REQUESTED BY: [facility] and Dr. Chelly Del Cid. RECOMMENDATIONS: 1. I agree with an empiric trial of steroids with dexamethasone at this time. 2. I agree with treatment of his urinary tract infection. 3. I would recommend physical therapy evaluation. 4. I would recommend hospice consultation in view of the patient's advanced disease and impending liver failure related to his underlying heavily pretreated malignancy. 5. I discussed the patient's core status with the patient and with his sons in attendance. He agrees at this time that cardiopulmonary resuscitation would not be in his best interest and would likely prolong his instead of saving his life. Therefore, they want a do not resuscitate order in his chart. ASSESSMENT: This 61-year-old gentleman was diagnosed with transitional cell carcinoma of the bladder in approximately July 2014. He had a radical cystectomy. The margins were initially negative. He had a neobladder performed at that time. He was treated with gemcitabine and cisplatin. This began approximately 1 year ago in August of 2015. This completed in March of 2016. Although he had a good response, unfortunately, he developed brain metastases and liver metastases. He underwent radiation therapy , and in addition, has recently been on a clinical trial with an immune modulator through the [facility] in [place] under the direction of Dr. Hua Olson. Last week, the patient was diagnosed with a urinary tract infection and was placed on antibiotics. Since then, he has become progressively weaker and has experienced a sudden loss of muscle tone. Because of his worsening status, he returned to [facility] and is now admitted for further care. His liver showing significant dysfunction at this time. He has a total bilirubin of 8.0. On the August, it was 2.2, and a month before that was 0.6. A CT scan which was obtained on the August showed worsening metastatic disease in his liver as well as in his retroperitoneal lymphadenopathy. He is therefore taken off study at this time. Because of the patient's impending liver failure and decreased functional status , he is likely not a candidate for additional therapy aimed at his cancer. The risk of significant side effects far outweighs the potential benefit. I have consulted with his primary oncologist, Dr. Mike Kiran, and at this time, we both feel that consideration for hospice upon discharge to be most appropriate. HISTORY OF PRESENT ILLNESS: Please see assessment. PAST MEDICAL HISTORY: Remarkable for chronic low back pain. REVIEW OF SYSTEMS: Currently remarkable for decreased visual acuity in his right visual oliveira, jaundice, constipation, decreased appetite and sudden loss of muscle tone. PHYSICAL EXAMINATION: Reveals a jaundiced gentleman who is able to participate in conversation. He is able to ask and answer questions appropriately. His 2 sons are in the room with him during the consultation. HEENT: Remarkable for jaundice. Neurological: Patient has sudden loss of muscle tone consistent with asterixis. He is not otherwise examined today. We will continue to follow along with you during this hospitalization and beyond. /[id number]/MODL MTDD
[2016-09-12] MEDS ORDERED: fentaNYL 100 MCG PATCH TD SCH (19:00)
[2016-09-12] MEDS: oxyCODONE CR 80 MG TAB PO SCH (19:17)
[2016-09-13 01:09] LABS: HEMATOCRIT 28.8 % (40.0-51.0); HEMOGLOBIN 9.3 g/dL (13.7-17.5)
[2016-09-13] MEDS: oxyCODONE IR 5 MG TAB PO PRN ×4 (01:10→20:51)
[2016-09-13 01:41] LABS: PLATELET COUNT 31 10^3/uL (150-400)
[2016-09-13 02:36] LABS: PLATELET ESTIMATE DECREASED (ADEQ)
[2016-09-13] MEDS: DEXAMETHASONE 4 MG TAB PO SCH ×4 (02:59→20:51)
[2016-09-13] MEDS: oxyCODONE CR 80 MG TAB PO SCH ×3 (02:59→17:59)
[2016-09-13 07:27] LABS: ABSOLUTE NRBC COUNT 0.04 10^3/uL (0-0.01); ADD DIFF? YES; ADD SCAN? NO; ATYPICAL LYMPHOCYTE FLAG 0 (0-99); HEMATOCRIT 27.7 % (40.0-51.0); LEFT SHIFT FLG 30 (0-99); LIPEMIA HEMOLYSIS FLAG 80 (0-99); MEAN CELL HEMOGLOBIN 25.9 pg (27.9-34.1); MEAN CELL HEMOGLOBIN CONCENTR. 32.5 g/dL (32.4-36.7); MEAN CELL VOLUME 79.6 fL (81.5-99.8); NRBC-AUTO% 0.3 % (0.0-0.2); PLATELET CLUMPS FLAG 0 (0-99); PLATELET COUNT 66 10^3/uL (150-400); RED BLOOD CELL COUNT 3.48 10^6/uL (4.40-6.38)
[2016-09-13 07:28] LABS: ADD MORPH? NO; FRAGMENT RBC FLAG 100 (0-99); RED CELL DISTRIBUTION WIDTH 27.2 % (11.5-15.2)
[2016-09-13 07:49] LABS: ALANINE AMINOTRANSFERASE 128 IU/L (21-72); ALBUMIN 2.3 g/dL (3.5-5.0); ALKALINE PHOSPHATASE 311 IU/L (38-126); ANION GAP 6 mEq/L (8-16); ASPARTATE AMINOTRANSFERASE 120 IU/L (17-59); BILIRUBIN,TOTAL 5.4 mg/dL (0.1-1.4); CALCIUM 8.2 mg/dL (8.5-10.4); CARBON DIOXIDE 22 mEq/l (22-31); CHLORIDE 106 mEq/L (97-110); CREATININE 0.9 mg/dL (0.7-1.3); GLOMERULAR FILTRATION RATE > 60; GLUCOSE 103 mg/dL (70-100); POTASSIUM 4.4 mEq/L (3.5-5.2); SODIUM 134 mEq/L (134-144); TOTAL PROTEIN 4.9 g/dL (6.3-8.2)
[2016-09-13 07:56] LABS: BILIRUBIN-CONJUGATED 3.6 mg/dL (0.0-0.5); BILIRUBIN-UNCONJUGATED 1.8 mg/dL (0.0-1.1)
[2016-09-13 08:22] LABS: HYPOCHROMIA 1+
--- NOTE | 2016-09-13 10:46 | SOAPPROG ---
[facility] Progress Note Assessment/Plan: Assessment: - Advanced treatment refractory metastatic transitional cell CA bladder to liver and brain - options for therapy directed against his tumor are at the point of diminishing returns. The current goal of inpatient therapy is to correct/treat/optimize his underlying comorbidities to the extent possible then consider discharge with the aim of care being best supportive care/hospice. - Hepatic failure - Total bilirubin is down slightly to 5.4 but patient still has asterixis and some tangential thinking. - Pain - under adequate control Plan: Continue supportive care Continue pain meds Palliative care/hospice consult would be appropriate in the next few days. Subjective: Alert. Denies pain. and son at bedside. Objective: Vital Signs Temp Pulse Resp BP Pulse Ox 36.7 C 73 16 109/75 95 09/13/16 07:30 09/13/16 07:30 09/13/16 07:30 09/13/16 07:30 09/13/16 07:30 Laboratory Results 09/13/16 07:22 09/13/16 07:22 09/11/16 09/12/16 09/13/16 23:59 23:59 23:59 Intake Total 3650 2230 Output Total 450 2850 Balance 3200 -620 Physical Exam - Physical Exam General Appearance: alert EENT: scleral icterus (R), scleral icterus (L) Skin: jaundice Neuro/Psych: other (asterixis) ICD10 Worksheet Patient Problems: Problems Problem Status Onset Elevated troponin Acute Jaundice Acute Liver metastases Acute Primary cancer of bladder with metastasis to other site Acute Thrombocytopenia Acute UTI (urinary tract infection) Acute Weakness Acute
[2016-09-13 10:51] LABS: PLATELET ESTIMATE DECREASED (ADEQ)
--- NOTE | 2016-09-13 15:50 | PDPCPN ---
Palliative Care Progress Note Assessment/Plan: AReferring provider: Dr Nobles Reason for consult: Complex medical decision making Symptom control HPI: Sonia Basilio is a 61 yo male with PMH metastatic bladder cancer dx 07/2014 s/ p neobladder and multiple chemotherapy regimens admitted to the hospital for increased weakness. Most recent treatment was clinical trial with immunotherapy discontinued due to disease progression with recent brain radiation for mets. In the ED with possible UTI as well as hepatic failure thought to be due to disease progression vs infection. Palliative care consulted for complex medical decision making. Spoke with Sonia with his niece and nephew at the bedside this afternoon. Sonia stated he understands where he is in his disease process but believes there are many other medical interventions that are still available for himself. He does not feel like its time to "punch the button". He described how his mother and father recently in "palliative care" and feels he understands what this is. Attempted to explain the role of palliative care is more than just about the or end of life but also about quality of the life you are living. Sonia feels he will know when it is time for palliative care and he will be able to ask for it when he feels it is needed. He does not feel there is anything for palliative care to assist with at this time. Assessment: Physical: - Pain: cancer related pain- tolerable and well controlled at present - on oxycontin 80mg Q8hr + fentanyl 100 mch/hr patch - ox IR 20mg PRN - also on dex for brain mets but can be helpful for pain as well - constipation - at risk with opiates - bowel regimen with senna+ colace Emotional/psychological: Doing well emotionally and feels well supported by his family. He believes in God and when it is his time God will know. Advanced Care Planning: Is patient decisional?: Yes Code Status: DNR POA: unsure who is MDPOA. Plan: He is not interested in palliative care or hospice at this time. He feels there are still many medical interventions for his care and will let us know when he is ready for any palliative care or hospice approach. Subjective: I am doing ok today Objective: Social History: . Lives with his family who are very involved. Works as an executive. Medication list reviewed ROS: General: fatigue, weakness, weight loss ENT: negative Resp: negative GI: negative : negative MS: abdominal pain at times Skin: negative Neuro: general weakness Psych: negative Functional assessment: PPS: 60% Functional status: needs some assistance with ADLs Vital Signs Temp Pulse Resp BP Pulse Ox 36.5 C 78 18 129/81 H 90 L 09/13/16 13:14 09/13/16 13:14 09/13/16 13:14 09/13/16 13:14 09/13/16 13:14 Laboratory Results 09/13/16 07:22 09/13/16 07:22 09/12/16 09/13/16 09/14/16 05:59 05:59 05:59 Intake Total 5880 120 Output Total 3300 Balance 2580 120 Physical Exam - Physical Exam General Appearance: alert, no apparent distress Respiratory: No respiratory distress, No accessory muscle use Skin: warm/dry, jaundice Extremities: No pedal edema Neuro/Psych: alert, oriented x 3 ICD10 Worksheet Patient Problems: Problems Problem Status Onset Elevated troponin Acute Jaundice Acute Liver metastases Acute Palliative care encounter Acute Primary cancer of bladder with metastasis to other site Acute Thrombocytopenia Acute UTI (urinary tract infection) Acute Weakness Acute - ICD10 Problem Qualifiers (1) Palliative care encounter
--- NOTE | 2016-09-13 16:04 | SOAPPROG ---
SOAP Progress Note Assessment/Plan: Assessment: Urinary retention and inability to catheterize neobladder. Plan: 1. s/p successful complex catheterization with 14 Fr. Coude catheter. 2. Nursing staff should flush Hilliard prn mucus production (which is common w/ a neobladder). Discussed w/ pt's day nurse. 09/13/16 16:02 Subjective: Low urine output with inability for nursing staff to successfully catheterize this pt's neobladder which was constructed 2 years ago at [facility]. Objective: Vital Signs Temp Pulse Resp BP Pulse Ox 36.5 C 78 18 129/81 H 90 L 09/13/16 13:14 09/13/16 13:14 09/13/16 13:14 09/13/16 13:14 09/13/16 13:14 Laboratory Results 09/13/16 07:22 09/13/16 07:22 09/12/16 09/13/16 09/14/16 05:59 05:59 05:59 Intake Total 5880 120 Output Total 3300 Balance 2580 120 Physical Exam - Physical Exam General Appearance: alert, no apparent distress, cachetic Abdomen: soft, distended (mild suprapubic) Male Genitalia: other (noncircumcised) Neuro/Psych: alert, normal mood/affect, oriented x 3 ICD10 Worksheet Patient Problems: Problems Problem Status Onset Elevated troponin Acute Jaundice Acute Liver metastases Acute Palliative care encounter Acute Primary cancer of bladder with metastasis to other site Acute Thrombocytopenia Acute UTI (urinary tract infection) Acute Weakness Acute
--- NOTE | 2016-09-13 16:34 | HOSPPROG ---
Hospitalist Progress Note Assessment/Plan: * Metastatic bladder cancer - liver/brain mets -not responding to chemo -oncology recommends hospice -patient not interested - wishes to pursue additional opinions at * Neobladder - difficult han drainage - hematuria -urology consulted - han changed -may need fluoro in radiology for placement - free urine seen on CT - not draining * Possible acute cholecystitis - d/w Dr. Harrington -enlarge, inflamed gallbladder - consult surgery - d/w Dr. Steele * Increased LFT - due to liver mets vs. cholecystitis * Borderline trops -doubt clinical significance * Thrombocytopenia - improved * UTI - enterococcus -Augmentin * Brain mets -continue Decadron Subjective: Lots of pain in abd. no drainage from cathter Objective: Vital Signs Temp Pulse Resp BP Pulse Ox 36.9 C 81 16 136/83 H 91 L 09/13/16 16:17 09/13/16 16:17 09/13/16 16:17 09/13/16 16:17 09/13/16 16:17 Laboratory Results 09/13/16 07:22 09/13/16 07:22 09/12/16 09/13/16 09/14/16 05:59 05:59 05:59 Intake Total 5880 420 Output Total 3300 370 Balance 2580 50 abd US: contracted GB - Physical Exam Constitutional: no apparent distress, appears nourished, not in pain Cardiovascular: regular rate and rhythym, no murmur, rub, or gallop Respiratory: no respiratory distress, no rales or rhonchi, clear to auscultation Gastrointestinal: tenderness, hepatosplenomegally, distension, No guarding, No rebound Skin: no rashes or abrasions, no fluctuance, no induration Neurologic: AAOx3, sensation intact bilaterally Psychiatric: interacting appropriately, not anxious, not encephalopathic, thought process linear ICD10 Worksheet Patient Problems: Problems Problem Status Onset Elevated troponin Acute Jaundice Acute Liver metastases Acute Palliative care encounter Acute Primary cancer of bladder with metastasis to other site Acute Thrombocytopenia Acute UTI (urinary tract infection) Acute Weakness Acute
[2016-09-13] MEDS ORDERED: HYDROmorphONE/DILAUDID 1 MG/ML SYR IVP PRN (16:41)
[2016-09-13] MEDS ORDERED: IOPAMIDOL (ISOVUE-300) 50 ML VIAL IV ONE (17:10)
[2016-09-13] MEDS ORDERED: LIDOCAINE 2% JELLY 20 ML (UROJECT) ONE (17:22)
[2016-09-13] MEDS: AMPICILLIN/SULBACTAM 3 GM in NS 100 ML IV SCH (18:10)
[2016-09-13] MEDS ORDERED: AMOXICILLIN/CLAVULANATE POT 875/125 MG TAB PO SCH (21:00)
[2016-09-14] MEDS: AMPICILLIN/SULBACTAM 3 GM in NS 100 ML IV SCH ×4 (00:37→17:05)
[2016-09-14] MEDS: oxyCODONE IR 5 MG TAB PO PRN (01:12)
[2016-09-14] MEDS: DEXAMETHASONE 4 MG TAB PO SCH ×3 (03:04→15:02)
[2016-09-14] MEDS: oxyCODONE CR 80 MG TAB PO SCH ×3 (03:04→17:05)
[2016-09-14 05:35] LABS: ABSOLUTE NRBC COUNT 0.06 10^3/uL (0-0.01); ADD DIFF? YES; ADD SCAN? NO; ATYPICAL LYMPHOCYTE FLAG 10 (0-99); HEMATOCRIT 28.5 % (40.0-51.0); HEMOGLOBIN 9.3 g/dL (13.7-17.5); LEFT SHIFT FLG 50 (0-99); LIPEMIA HEMOLYSIS FLAG 80 (0-99); MEAN CELL HEMOGLOBIN 25.9 pg (27.9-34.1); MEAN CELL HEMOGLOBIN CONCENTR. 32.6 g/dL (32.4-36.7); MEAN CELL VOLUME 79.4 fL (81.5-99.8); NRBC-AUTO% 0.4 % (0.0-0.2); PLATELET CLUMPS FLAG 10 (0-99); RED BLOOD CELL COUNT 3.59 10^6/uL (4.40-6.38)
[2016-09-14 05:36] LABS: ALANINE AMINOTRANSFERASE 135 IU/L (21-72); ALBUMIN 2.3 g/dL (3.5-5.0); ALKALINE PHOSPHATASE 338 IU/L (38-126); ANION GAP 7 mEq/L (8-16); ASPARTATE AMINOTRANSFERASE 144 IU/L (17-59); BILIRUBIN,TOTAL 8.7 mg/dL (0.1-1.4); BILIRUBIN-CONJUGATED 6.1 mg/dL (0.0-0.5); BILIRUBIN-UNCONJUGATED 2.6 mg/dL (0.0-1.1); CALCIUM 8.4 mg/dL (8.5-10.4); CARBON DIOXIDE 21 mEq/l (22-31); CHLORIDE 106 mEq/L (97-110); CREATININE 0.9 mg/dL (0.7-1.3); GLOMERULAR FILTRATION RATE > 60; GLUCOSE 125 mg/dL (70-100); POTASSIUM 4.3 mEq/L (3.5-5.2); SODIUM 134 mEq/L (134-144)
[2016-09-14 05:46] LABS: INR 1.55 (0.83-1.16); PROTIME(PATIENT) 18.6 SEC (12.0-15.0)
[2016-09-14 05:52] LABS: RED CELL DISTRIBUTION WIDTH 28.3 % (11.5-15.2)
[2016-09-14 05:53] LABS: ADD MORPH? NO; FRAGMENT RBC FLAG 100 (0-99); PLATELET COUNT 34 10^3/uL (150-400)
[2016-09-14 06:29] LABS: POLYCHROMASIA 3+
[2016-09-14 06:30] LABS: MICROCYTES 1+; PLATELET ESTIMATE DECREASED (ADEQ); SCHISTOCYTES 3+
[2016-09-14 08:22] VITALS: RESP 13
[2016-09-14] MEDS ORDERED: fentaNYL 75 MCG PATCH TD SCH (10:00)
--- NOTE | 2016-09-14 10:44 | GCON ---
CHIEF COMPLAINT: Possible acute cholecystitis. HISTORY OF PRESENT ILLNESS: The patient is a 61-year-old man with a history of metastatic bladder cancer, who presented initially with weakness. He has known metastasis to both his liver and his brain. He is not interested in pursuing palliative care at this time, and an ultrasound was obtained of his abdomen on September 12, 2016 which showed an enlarged liver and a retracted the gallbladder. There were no obvious stones or pericholecystic fluid, and he was nontender over the area. His LFTs are persistently elevated, and he had a CT scan performed on September 13, 2016, and on this a significantly inflamed gallbladder with right upper quadrant inflammation was found, indicating acute acalculous cholecystitis. His white count is 13.81, and his LFTs remain elevated with a direct bilirubin of 6.1, and AST and ALT of 144 and 135. PAST MEDICAL HISTORY: Bladder cancer as above, abdominal hernia. PAST SURGICAL HISTORY: Neobladder. ALLERGIES: No known drug allergies. FAMILY HISTORY: No history of bladder cancer. SOCIAL HISTORY: Previous to this admission he lived with his . He denies alcohol or tobacco use. REVIEW OF SYSTEMS: He is fatigued, he does occasionally have right upper quadrant pain. PHYSICAL EXAMINATION: VITAL SIGNS: Temperature 36.6, 76, 137/87, 13, 92% on room air. GENERAL: Pleasant, sitting in bed, he does close his eyes periodically through the exam, at other times is very bright and alert and wants the conversation to be directed towards him. His family is at bedside. HEENT: Normocephalic. No gross hearing deficits. He does have scleral icterus. His mucous membranes are moist. ABDOMEN: He has a palpable gallbladder versus an enlarged liver in the right upper quadrant, he is slightly tender to palpation in this area. He has an abdominal hernia. He is otherwise soft. IMPRESSION AND PLAN: The patient is a 61-year-old man with metastatic bladder cancer with possible acute acalculous cholecystitis. Due to his multiple issues it may be prudent to continue antibiotics at this time. I am going to look if a percutaneous cholecystostomy tube is even a possibility, as there seems to be a large degree of inflammation in the right upper quadrant. The gallbladder is contracted which makes this less likely. I am concerned with the degree of inflammation as well as the metastatic cancer, that he is at higher risk of developing a complication from surgery such as bleeding or a bile leak. The patient expressed that he was eager to have many people get to know him before any decisions were made. He is currently on Unasyn, and that should be coverage for his gallbladder as well. We will continue to follow. /[id number]/MODL MTDD
[2016-09-14] MEDS ORDERED: LIDOCAINE 2% JELLY 20 ML (UROJECT) UR PRN (11:07)
--- NOTE | 2016-09-14 13:34 | GDS ---
DIAGNOSES: 1. Metastatic bladder cancer. 2. Acute acalculous cholecystitis. 3. 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 4. Brain metastases on Decadron. 5. Hematuria status post Hilliard catheterization of neobladder. 6. Thrombocytopenia. 7. Enterococcus urinary tract infection. HISTORY: The patient is a 61-year-old male with metastatic bladder cancer who presented with a chief complaint of weakness. He was recently diagnosed with urinary tract infection, and culture grew Enterococcus. He had been on Keflex, but that was inadequate treatment for this UTI. Upon presentation he was noted to have dramatically increased liver function tests. He had recently been on immunotherapy trial at the [facility], but that was stopped, I believe, due to increasing brain lesions, for which he completed a course of radiation therapy. HOSPITAL COURSE: PROBLEM #1: Acute acalculous cholecystitis. Given his increased LFTs, an abdominal ultrasound was ordered on admission, which showed a relatively normal-appearing contracted gallbladder. At that point. Oncology felt his LFT elevation was likely due to progression of liver metastases causing hepatic failure. He had some issues with catheterization of his neobladder, which led to a CT scan of the abdomen and pelvis. Incidentally noted on that CT scan was extensive right upper quadrant inflammation related to his gallbladder. It is now believed that he does have acalculous cholecystitis, and this may be the cause of his decline and increased LFTs. He relates minimal right upper quadrant pain, otherwise does not appear septic. He was started empirically on Unasyn. General Surgery was consulted. There was discussion regarding possible cholecystostomy tube. The patient declined any further therapy here at [facility] and requested transfer to [facility], which has been arranged. PROBLEM #2: Bladder cancer with liver and brain metastases. His primary oncologist, Dr. Kiran, has recommended hospice. The patient is not interested in hospice at this time. He requests additional opinions at [facility] regarding further treatment potential. Initially his increased LFTs were felt to be due to hepatic failure from his extensive liver metastases. At this point, it is unclear given this new finding of acute cholecystitis to what point that may be contributing. PROBLEM #3: Hematuria of the neobladder. When he initially came in, he had an elevated venous lactate, for which he received aggressive IV fluid. His neobladder was unable to keep up with aggressive fluid resuscitation, and he did require Hilliard catheter placement. At the time of Hilliard catheter placement, his platelets were only 30. He subsequently developed hematuria and clots and we had a difficult time getting the Hilliard catheter to drain. Urology was consulted, and they were also unsuccessful. Eventually he went to Interventional Radiology and had a cystogram under fluoro where a new catheter was placed under guidance, and 1 L of bloody urine was drained with post drainage fluoroscopy showing resolution of the contrasted pouch. Since his procedure the hematuria is resolving and there were no further issues with drainage from the Hilliard catheter. PROBLEM #4: Enterococcus urinary tract infection. This was suboptimally treated prior to admission on Keflex. He is now on IV Unasyn to cover not only acute cholecystitis but also this potential UTI. Per family's request, he is being transferred to [facility] for further care. They do desire tertiary care opinion prior to making any sort of end of life discussion. They are hopeful that treating the gallbladder will improve his situation. They are very much interested in further aggressive care and chemo if indicated. Greater than 30 minutes spent arranging this discharge /[id number]/MODL MTDD
[2016-09-14 15:49] VITALS: BP 130/81; PULSE 77; TEMP 97.7; O2SAT 91
[2016-09-14] MEDS ORDERED: LACTULOSE 20 GM/30 ML UDCUP PO SCH (16:00)
== END 2016-09-14 18:09 | disposition short-term general hospital (02) | DRG 654 ==
LOC: EDUNIT# → F2W 14:41
PROVIDERS: ADMIT Hospitalist; ATTEND Student in an Organized Health Care Education/Training Program
PROC: 30233R1 Transfusion of Nonautologous Platelets into Peripheral Vein, Percutaneous Approach (ICD-10-PCS; 2016-09-12)
PROC: 0TSB4ZZ Reposition Bladder, Percutaneous Endoscopic Approach (ICD-10-PCS; principal; 2016-09-13)
DX: N39.0 Urinary tract infection, site not specified (principal); K81.0 Acute cholecystitis; C78.7 Secondary malignant neoplasm of liver and intrahepatic bile duct; C67.9 Malignant neoplasm of bladder, unspecified; C79.31 Secondary malignant neoplasm of brain; B95.2 Enterococcus as the cause of diseases classified elsewhere; G89.29 Other chronic pain; D69.59 Other secondary thrombocytopenia; R33.9 Retention of urine, unspecified; D64.9 Anemia, unspecified; K72.90 Hepatic failure, unspecified without coma
CPT/HCPCS: 96365; 97162-GP; 97166-GO; 97535-GO; C1769; G0480; J0295; J0696; J1956; J3370; P9035; Q9967